=== PATIENT | male | born 1960 | race Caucasian/White ===

== ENCOUNTER 2018-05-02 08:22 | Emergency (ER) | payer BC ==
[2018-05-02] MEDS ORDERED: DIPH/PERTUSS(ACELL)/TETANUS VAC/PF 0.5 ML SYR (>=10YO) IM ONE (09:22)
[2018-05-02] MEDS ORDERED: AMOXICILLIN TR/POT CLAVULANATE 500-125 MG TAB PO ONE (09:23)
[2018-05-02] MEDS ORDERED: RABIES VACCINE (PCEC)/PF 2.5 UNIT/1 ML KIT IM ONE (09:23)
[2018-05-02] MEDS ORDERED: RABIES IMMUNE GLOBULIN INJ/PF 300 UNIT/2 ML SDV IM ONE (09:23)
--- NOTE | 2018-05-02 09:27 | ER Document Report ---
ED Animal Bite - General Chief Complaint: Animal Bite Stated Complaint: COYOTE BITE Time Seen by Provider: 05/02/18 09:06 Primary Care Provider: ANDRIY FREY [NO LOCAL MD] - Follow up as needed Information source: Patient Notes: 57-year-old male who is been prior to arrival in the right hand by a coyote. He was performing coyote hunting with dogs. The dog was attacking the coyote and he attempted to break them up. [place] supposedly is now . Patient's tetanus is not up-to-date. Patient denies a history of diabetes. TRAVEL OUTSIDE OF THE [place] IN LAST 30 DAYS: No - HPI Animal control notified: Yes - Related Data Allergies/Adverse Reactions: Sulfa (Sulfonamide Antibiotics) Allergy (Verified 05/02/18 08:23) Past Medical History - Social History Smoking Status: Unknown if Ever Smoked Chew tobacco use (# tins/day): No Frequency of alcohol use: Social Drug Abuse: None Family History: Reviewed & Not Pertinent Patient has suicidal ideation: No Patient has homicidal ideation: No Renal/ Medical History: Denies: Hx Peritoneal Dialysis Physical Exam - Vital signs Vitals: Temp Pulse Resp BP Pulse Ox 97.6 F 86 18 154/90 H 98 05/02/18 08:26 05/02/18 08:26 05/02/18 08:26 05/02/18 08:26 05/02/18 08:26 Interpretation: Normal Notes: Reviewed vital signs and nursing note as charted by RN. CONSTITUTIONAL: Alert and oriented and responds appropriately to questions. Well-appearing; well-nourished HEAD: Normocephalic; atraumatic EXT: Patient has a small puncture-like lesion to the volar aspect of the base of the left pinky finger as well as a small abrasion to the dorsal aspect of the metacarpophalangeal joint. Neurovascularly intact distally with excellent movement, strength, flexion, extension of the pinky finger, with capillary refill and sensation intact Course - Re-evaluation Re-evalutation: 05/02/18 09:25 Given the history and physical examination we will update the patient's tetanus, start Augmentin, irrigate copiously, provide rabies immunoglobulin into the lesion as well as a rabies vaccination x1 into the opposite deltoid. We will place the patient in a ulnar gutter splint with strict return precautions and wound checks and start the patient on a course of Augmentin. 05/02/18 10:06 Injections have been provided. Tetanus is up-to-date. Copious irrigation, bacitracin, and splinting have been applied. The technician biological health placed the splint without direct supervision and I checked the sp lint placement with good neurovascular status distally - Vital Signs Vital signs: Temp Pulse Resp BP Pulse Ox 97.6 F 86 18 154/90 H 98 05/02/18 08:26 05/02/18 08:26 05/02/18 08:26 05/02/18 08:26 05/02/18 08:26 Discharge - Discharge Clinical Impression: Animal bite Condition: Good Disposition: HOME, SELF-CARE Additional Instructions: Come back immediately for any redness, swelling, fever, vomiting, swelling to the front or back of the hand, or any other acute problems. Please follow the rabies vaccination schedule as provided. Prescriptions: Amox Tr/Potassium Clavulanate [Augmentin 875-125 Tablet] 1 tab PO BID 10 Days #20 tablet Referrals: LOCALMD,NO [NO LOCAL MD] - Follow up as needed
[2018-05-02] MEDS ORDERED: BACITRACIN ZINC OINTMENT 15 GM TP ONE (10:05)
[2018-05-02 10:55] VITALS: BP 138/97
== END 2018-05-02 10:54 | disposition home or self-care (01) ==
LOC: ER 08:22
DX: S61.257A Open bite of left little finger without damage to nail, initial encounter (principal); S61.452A Open bite of left hand, initial encounter; W55.81XA Bitten by other mammals, initial encounter; Y93.89 Activity, other specified; Z23 Encounter for immunization; Z88.2 Allergy status to sulfonamides
CPT/HCPCS: 99283; 96372; 90471 ×2; 90715; 90675; 90376; 29125; J3490